=== PATIENT | female | born 1965 | race Caucasian/White ===

== ENCOUNTER 2024-04-25 07:30 | Day surgery (SDC) | payer BC, SELFPAY ==
[2024-04-25] VITALS (11 sets, daily range): BP systolic 120–133; BP diastolic 75–96; PULSE 68–83; RESP 12–19; TEMP 36.2–36.7; O2SAT 96–99; BMI 35.3
[2024-04-25] MEDS: MIDAZOLAM INJ 1 MG/ML VIAL 2 ML (ASD USE ONLY) 2 MG IV (09:09)
[2024-04-25] MEDS: DiphenhydrAMINE INJ 50 MG/ML VIAL 25 MG IV (09:09)
[2024-04-25] MEDS: fentaNYL CIT INJ 50 mCg/ML AMP 2ML (ASD USE ONLY) IV (09:09)
== END 2024-04-25 10:10 | disposition home or self-care (01) ==
PROVIDERS: PCP Family Medicine; Referring Provider Specialist; Visit Provider Specialist
PROC: 0DBE8ZX Excision of Large Intestine, Via Natural or Artificial Opening Endoscopic, Diagnostic (ICD-10-PCS; CPT 45380; principal; 2024-04-25 11:15)
DX: K64.1 Second degree hemorrhoids (principal)
CPT/HCPCS: 45378; A4649; J1200; J2250; J3010